=== PATIENT | male | born 1985 | race Caucasian/White ===

== ENCOUNTER 2022-07-29 21:34 | Emergency (ER) | payer SELFPAY ==
[~2022-07-29] VITALS: Ht 175.3 cm; Wt 66.0 kg
[2022-07-29] MEDS ORDERED: LIB25 PO (22:53)
[2022-07-29] MEDS ORDERED: DOXY-354 PO (22:55)
[2022-07-29 23:30] VITALS: BP 165/85
== END 2022-07-29 23:40 | disposition home or self-care (01) ==
LOC: EMS 21:49
DX: L73.9 Follicular disorder, unspecified (principal); F41.9 Anxiety disorder, unspecified; I10 Essential (primary) hypertension; F17.210 Nicotine dependence, cigarettes, uncomplicated; F10.20 Alcohol dependence, uncomplicated; Z88.8 Allergy status to other drugs, medicaments and biological substances; Y90.9 Presence of alcohol in blood, level not specified
CPT/HCPCS: 99283; Z7502

== ENCOUNTER 2023-09-16 03:27 | Emergency (ER) | payer SELFPAY ==
[~2023-09-16] VITALS: Ht 175.3 cm; Wt 63.6 kg
[~2023-09-16 03:27] MED LIST: CHLO25CA6 PO; DOXY-354 PO
[2023-09-16 03:37] VITALS: BP 156/107; PULSE 115; RESP 18; TEMP 98.1
[2023-09-16] MEDS ORDERED: CLINDAMYCIN HCL 150 MG CAPSULE PO ONE (05:00)
[2023-09-16] MEDS ORDERED: IBUPROFEN 800 MG TABLET PO ONE (05:00)
[2023-09-16] MEDS ORDERED: CLIN300C58 PO (05:03)
[2023-09-16] MEDS ORDERED: HYDR-4072 PO (05:03)
[2023-09-16] MEDS ORDERED: IBUP-1493 PO (05:03)
== END 2023-09-16 05:45 | disposition home or self-care (01) ==
LOC: EMS 03:28
DX: K04.7 Periapical abscess without sinus (principal); K08.89 Other specified disorders of teeth and supporting structures; F17.210 Nicotine dependence, cigarettes, uncomplicated; F12.90 Cannabis use, unspecified, uncomplicated
CPT/HCPCS: 99283